=== PATIENT | male | born 1965 | race African-American/Black ===

== ENCOUNTER 2017-07-03 13:40 | Emergency (ER) | payer SELFPAY ==
[~2017-07-03] VITALS: Ht 190.5 cm; Wt 75.0 kg
[2017-07-03] MEDS ORDERED: OXYCODONE HCL/ACETAMINOPHEN 5/325MG TABLET PO ONE (16:30)
[2017-07-03 17:21] VITALS: BP 118/67
== END 2017-07-03 17:47 | disposition home or self-care (01) ==
LOC: ER 13:52
DX: S62.603A Fracture of unspecified phalanx of left middle finger, initial encounter for closed fracture (principal); W01.0XXA Fall on same level from slipping, tripping and stumbling without subsequent striking against object, initial encounter; Y93.89 Activity, other specified; Y92.89 Other specified places as the place of occurrence of the external cause; R03.0 Elevated blood-pressure reading, without diagnosis of hypertension
CPT/HCPCS: 29130; 73130; 73502; 99284; Z7610